=== PATIENT | male | born 1940 | race Caucasian/White ===

== ENCOUNTER 2019-01-24 13:02 | Outpatient (CLI) | payer MEDICARE, BC ==
[~2019-01-24] VITALS: Ht 167 cm; Wt 87.6 kg
[2019-01-24] MEDS ORDERED: MULT-10 PO (13:46)
[2019-01-24] MEDS ORDERED: PANT40TA3 PO (13:46)
[2019-01-24] MEDS ORDERED: GABA-488 PO (13:46)
[2019-01-24] MEDS ORDERED: CARV12.53 PO (13:46)
[2019-01-24] MEDS ORDERED: ASPI-586 PO (13:46)
[2019-01-24] MEDS ORDERED: LACT1CAP39 PO (13:46)
[2019-01-24] MEDS ORDERED: ALLO100T PO (13:46)
[2019-01-24] MEDS ORDERED: WARF4TAB9 PO (13:46)
[2019-01-24] MEDS ORDERED: FURO20TA4 PO (13:46)
[2019-01-24] MEDS ORDERED: FERR324T4 PO (13:46)
[2019-01-24] MEDS ORDERED: PRAV40TA2 PO (13:46)
[2019-01-24] MEDS ORDERED: POTA20TA15 PO (13:46)
[2019-01-24] MEDS ORDERED: DOCU100C37 PO (13:46)
[2019-01-24] MEDS ORDERED: FENT1PAT8 TD (13:46)
[2019-01-24] MEDS ORDERED: WARF2TAB8 PO (13:46)
[2019-01-24] MEDS ORDERED: MELO15TA39 PO (13:46)
[2019-01-24 13:52] VITALS: BP 107/59
== END 2019-01-24 14:47 | disposition home or self-care (01) ==
LOC: PREOP 13:02
PROVIDERS: ATTEND Orthopaedic Surgery Orthopaedic Surgery of the Spine
DX: Z01.818 Encounter for other preprocedural examination (principal)
CPT/HCPCS: 87081

== ENCOUNTER 2019-01-30 07:36 | Day surgery (SDC) | payer MEDICARE, BC ==
[~2019-01-30] VITALS: Ht 167 cm; Wt 87.6 kg
[~2019-01-30 07:36] MED LIST: ALLO100T PO; ASPI-586 PO; CARV12.53 PO; DOCU100C37 PO; FENT1PAT8 TD; FERR324T4 PO; FURO20TA4 PO; GABA-488 PO; LACT1CAP39 PO; MELO15TA39 PO; MULT-10 PO; PANT40TA3 PO; POTA20TA15 PO; PRAV40TA2 PO; WARF2TAB8 PO; WARF4TAB9 PO
[2019-01-30] MEDS ORDERED: GENTAMICIN 40 MG/ML 2 ML INJ SDV ONE (07:38)
[2019-01-30] MEDS ORDERED: BUP/EPI 0.5% 1:200,000 (SENSORCAINE) 30 ML VIAL ONE (07:40)
[2019-01-30] MEDS ORDERED: LACTATED RINGERS 1,000 ML IV PRN (07:43)
[2019-01-30 07:45] VITALS: BP 144/95
[2019-01-30] MEDS ORDERED: ceFAZolin 2 GM IV Premixed 50 ML IV ONE (07:45)
[2019-01-30] MEDS ORDERED: fentaNYL INJECTION 100 MCG/2 ML AMP ONE (07:50)
[2019-01-30] MEDS ORDERED: proPOfol 200 MG/20 ML (DIPRIVAN) VIAL IV ONE (07:50)
[2019-01-30] MEDS ORDERED: ONDANSETRON 4 MG/2 ML (SDV) Z0FRAN ONE (07:50)
[2019-01-30] MEDS ORDERED: ROCURONIUM 10 MG/ML 5 ML SYRINGE IV ONE (07:50)
[2019-01-30] MEDS ORDERED: LIDOCAINE PF 2% 5 ML (XYLOCAINE) VIAL ONE (07:50)
[2019-01-30] MEDS ORDERED: MIDAZOLAM 2 MG/2 ML (VERSED) VIAL ONE (07:50)
[2019-01-30] MEDS ORDERED: DEXMEDETOMIDINE 200 MCG/2 ML (PRECEDEX) VIAL IV ONE ×2 (07:51→08:49)
[2019-01-30] MEDS ORDERED: ISOFLURANE (FORANE) 15 ML/15 MIN INHALATION ONE (07:51)
[2019-01-30] MEDS ORDERED: DEXAMETHASONE 10 MG/ML (DECADRON) 1 ML VIAL ONE (07:51)
[2019-01-30 08:08] LABS: BASOPHILS % (AUTO) 0 % (0-10); EOSINOPHILS # (AUTO) 0.1 10^3/uL (0.0-0.3); EOSINOPHILS % (AUTO) 1 % (0-10); HEMATOCRIT 39 % (40-54); HEMOGLOBIN 12.6 G/DL (13.3-17.7); INR 1.8 (0.8-1.4); LYMPHOCYTES # (AUTO) 0.9 X 10^3 (1.0-4.0); LYMPHOCYTES % (AUTO) 15 % (12-44); MEAN CORPUSCULAR HEMOGLOBIN 27 PG (25-34); MEAN CORPUSCULAR HGB CONC 32 G/DL (32-36); MEAN CORPUSCULAR VOLUME 85 FL (80-99); MEAN PLATELET VOLUME 10.1 FL (7.4-10.4); MONOCYTES # (AUTO) 0.7 X 10^3 (0.0-1.0); MONOCYTES % (AUTO) 12 % (0-12); NEUTROPHILS # (AUTO) 4.1 X 10^3 (1.8-7.8); NEUTROPHILS % (AUTO) 72 % (42-75); PLATELET COUNT 77 10^3/uL (130-400); PROTHROMBIN TIME PATIENT 21.7 SEC (12.2-14.7); RED CELL DISTRIBUTION WIDTH 18.8 % (10.0-14.5); WHITE BLOOD COUNT 5.7 10^3/uL (4.3-11.0)
--- NOTE | 2019-01-30 08:10 | NUR ---
PT/INR, PTT RESULTS REPORTED TO DR PERALES.
[2019-01-30 08:20] LABS: ALBUMIN 3.4 GM/DL (3.2-4.5); BILIRUBIN,TOTAL 1.5 MG/DL (0.1-1.0); CALCIUM 10.1 MG/DL (8.5-10.1); CREATININE SERUM 1.18 MG/DL (0.60-1.30); POTASSIUM 4.2 MMOL/L (3.6-5.0); TOTAL PROTEIN 7.2 GM/DL (6.4-8.2)
--- NOTE | 2019-01-30 08:35 | NUR ---
DR PERALES AT BEDSIDE TO DISCUSS LAB RESULTS WITH PT AND PT'S DAUGHTER AND SON IN LAW. DR PERALES STATES HE IS CANCELLING TODAY'S SURGERY DUE TO ELEVATED PT/INR, PTT AND PT WILL CONTACT HIS OFFICE TO RESCHEDULE THE PROCEDURE.
--- NOTE | 2019-01-30 08:40 | Progress Note ---
Subjective Date Seen by a Provider: Jan 30, 2019 Time Seen by a Provider: 08:39 Objective Exam Vital Signs Date Time Temp Pulse Resp B/P (MAP) Pulse Ox O2 Delivery O2 Flow Rate FiO2 01/30/19 07:45 36.3 72 18 144/95 (111) 97 Room Air Capillary Refill : General Appearance: No Apparent Distress Results Lab Laboratory Tests 01/30/19 07:45: White Blood Count 5.7, Red Blood Count 4.61, Hemoglobin 12.6L, Hematocrit 39L, Mean Corpuscular Volume 85, Mean Corpuscular Hemoglobin 27, Mean Corpuscular Hemoglobin Concent 32, Red Cell Distribution Width 18.8H, Platelet Count 77L, Mean Platelet Volume 10.1, Neutrophils (%) (Auto) 72, Lymphocytes (%) (Auto) 15, Monocytes (%) (Auto) 12, Eosinophils (%) (Auto) 1, Basophils (%) (Auto) 0, Neutrophils # (Auto) 4.1, Lymphocytes # (Auto) 0.9L, Monocytes # (Auto) 0.7, Eosinophils # (Auto) 0.1, Basophils # (Auto) 0.0, Prothrombin Time 21.7H, INR Comment 1.8H, Sodium Level 140, Potassium Level 4.2, Chloride Level 102, Carbon Dioxide Level 24, Anion Gap 14, Blood Urea Nitrogen 27H, Creatinine 1.18, Estimat Glomerular Filtration Rate 59, BUN/Creatinine Ratio 23, Glucose Level 99, Glucometer 102, Calcium Level 10.1, Corrected Calcium 10.6H, Total Bilirubin 1.5H, Aspartate Amino Transf (AST/SGOT) 20, Alanine Aminotransferase (ALT/SGPT) 11, Alkaline Phosphatase 68, Total Protein 7.2, Albumin 3.4 Assessment/Plan Assessment/Plan Assess & Plan/Chief Complaint Anti-coagulation - INR is 1.8, 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 Will plan on rescheduling. YOLI PERALES MD Jan 30, 2019 08:40 POS
== END 2019-01-30 08:55 | disposition home or self-care (01) ==
LOC: SDC 07:36
PROVIDERS: ATTEND Orthopaedic Surgery Orthopaedic Surgery of the Spine
DX: M48.061 Spinal stenosis, lumbar region without neurogenic claudication (principal); M54.16 Radiculopathy, lumbar region; R79.1 Abnormal coagulation profile; Z53.09 Procedure and treatment not carried out because of other contraindication; I11.0 Hypertensive heart disease with heart failure; I25.10 Atherosclerotic heart disease of native coronary artery without angina pectoris; I50.9 Heart failure, unspecified; I48.91 Unspecified atrial fibrillation; G47.33 Obstructive sleep apnea (adult) (pediatric); E11.40 Type 2 diabetes mellitus with diabetic neuropathy, unspecified; K21.9 Gastro-esophageal reflux disease without esophagitis; G25.81 Restless legs syndrome; I25.2 Old myocardial infarction; Z95.5 Presence of coronary angioplasty implant and graft; Z87.891 Personal history of nicotine dependence; Z95.810 Presence of automatic (implantable) cardiac defibrillator; Z96.652 Presence of left artificial knee joint; Z79.01 Long term (current) use of anticoagulants; Z79.82 Long term (current) use of aspirin
CPT/HCPCS: 36415; 80053; 82962; 85025; 85610